=== PATIENT | female | born 1995 | race African-American/Black ===

== ENCOUNTER 2022-05-16 12:58 | Outpatient (CLI) | payer OTHER, SELFPAY ==
[2022-05-16 14:28] LABS: Hematocrit 32.8 % (37.0-47.0); Hemoglobin 11.2 g/dL (12.0-15.0); Mean Corpuscular HGB Conc 34.1 g/dl (32-36); Mean Corpuscular Hemoglobin 30.4 pg (26-34); Mean Corpuscular Volume 89.1 fl (80-100); Platelet Count Result 165 k/mm3 (150-375); Red Blood Count 3.68 M/mm3 (4.2-5.4); Red Cell Distribution Width 14.2 % (11.5-14.5); White Blood Count 5.4 K/mm3 (4.5-10.0)
[2022-05-17 07:23] LABS: Rapid Plasma Reagin Non-Reactive (NonReactive)
== END 2022-05-16 12:59 | disposition home or self-care (01) ==
PROVIDERS: Visit Provider Obstetrics & Gynecology
DX: Z34.93 Encounter for supervision of normal pregnancy, unspecified, third trimester (principal); Z3A.00 Weeks of gestation of pregnancy not specified
CPT/HCPCS: 36415; 85027; 86592; 86850; 86900; 86901

== ENCOUNTER 2022-05-17 05:48 | Inpatient (IN) | payer OTHER, SELFPAY ==
[2022-05-17] VITALS (44 sets, daily range): BP systolic 99–183; BP diastolic 53–144; PULSE 57–95; RESP 12–18; TEMP 36.1–36.8; O2SAT 96–100; BMI 44.9
--- NOTE | 2022-05-17 06:08 | LDADM ---
This patient, Janet Lehman, was admitted to Labor/Delivery/Recovery 120 on 05/17/22 at 05:48. Plans for labor, pain management and were discussed with patient. Patient/family oriented to hospital policies and general routines including ID bracelet, bed and alarms, visiting hours, pain management, procedures, bathroom and other care routines, personal items, smoking policy, room service/diet and guest tray routines, infant security routines, and visiting hours. Patient/Family are encouraged to report perceived risks to care and to ask questions if they do not understand what they are told or what they should do. See OBIX for further documentation.
[2022-05-17] MEDS: LACTATED RINGERS 1,000 ML 125 ML IV CONT (06:36)
[2022-05-17] MEDS: LACTATED RINGERS 1,000 ML 999 ML IV CONT (06:36)
--- NOTE | 2022-05-17 06:57 | PM.IMHP ---
H&P: HPI History of Present Illness Date/Time: 05/17/22 06:57 Chief Complaint: scheduled repeat Narrative: Janet is a 27yo @ 39.3wks (OBINNA 05/21/22) who presents for scheduled repeat section. She reports good movement. No VB or LOF. Her is complicated by: - Previous c/s x1.... for repeat - Obesity - Mild anemia; on iron daily Review of Systems Review of Systems: All systems reviewed & are unremarkable except as noted in HPI and below PMFSH Past Medical History Medical History Anxiety Depression Encounter for screening examination for sexually transmitted disease HSV-1 (herpes simplex virus 1) infection Suppression of menstruation Trichomonal vaginitis Surgical History Surgical History History of 09/30/19 arrest of dilation History of hernia repair History of tonsillectomy Hx laparoscopic cholecystectomy 01/24/21 Family History Family History Other Adopted Social History Social History Smoking status: Never smoker Alcohol intake: never Substance use: never Substance use type: does not use 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 Gender identity (if verbalized by the patient): Female Sexual Orientation (if Verbalized by the Patient): Straight or Heterosexual Spiritual care concerns: No Meds Home Medications and Allergies Home Medications Medication Instructions Recorded Confirmed Type ferrous sulfate 325 mg (65 mg 325 mg PO DAILY #90 tabs 03/26/22 05/17/22 Rx iron) tablet,delayed release vitamins-iron fumarate 65 1 tablet PO DAILY #90 tabs 04/10/22 05/17/22 Rx mg iron-folic acid 1 mg tablet Allergies Allergy/AdvReac Type Severity Reaction Status Date / Time Penicillins Allergy Severe Swelling Verified 02/19/22 14:24 of the Eye levofloxacin [From Levaquin] Allergy Swelling Verified 02/19/22 14:24 Vital Signs Vital Signs - 24 hr 05/17/22 06:08 05/17/22 06:08 05/17/22 06:38 Temperature 98 F Pulse Rate 77 Blood Pressure 133/77 Oxygen Delivery Room Air Exam Const: General: cooperative, comfortable and no acute distress Nutritional Appearance: obese Resp: Effort & Inspection: normal respiratory effort Cardio: Rate: regular rate GI: GI Palp: No abdominal tenderness and Yes Soft to palpation : Other: FHT's: 120's/mod elyssa/ + accels/ no decels - cat 1 Skin: General skin exam: normal color Neuro: General: patient oriented x3 Extrem: General: normal to inspection Psych: Appearance: grossly normal Affect: normal affect Attitude: cooperative Assessment and Plan Assessment and plan (1) Previous section complicating : Code(s): O34.219 - Maternal care for unspecified type scar from previous delivery Status: Acute Plan - for repeat section - all risks and benefits explained in detail
[2022-05-17] MEDS: GENTAMICIN SULFATE INJ 385 MG in DEXTROSE 5% 100 ML 109.63 MG IVPB (07:00)
--- NOTE | 2022-05-17 07:10 | WPDHPUPDATE1 ---
History and Physical Update Update Date/Time: 05/17/22 07:10 History and Physical has been reviewed, including an updated exam of the patient. There are NO changes in the patient's condition. Risks, benefits, and alternatives have been discussed and questions answered. Patient agrees to proceed with procedure.
--- NOTE | 2022-05-17 07:12 | WPDANESEPPF ---
Anes - Initial Pre Proc Eval Procedure: Operation Date: 05/17/22 07:30 Proposed Procedures p Repeat Section - Piper Miles MD Date/Time: 05/17/22 07:12 Surgeon: Piper Miles MD Pre Op Diagnosis: Repeat Patient Data Age: 27 Gender: F Height: 1.6 m Weight: 115 kg Last Vital Signs Temp 36.6 C 05/17/22 06:38 Pulse 77 05/17/22 06:08 BP 133/77 05/17/22 06:08 O2 Del Method Room Air 05/17/22 06:08 Allergies Allergy/AdvReac Type Severity Reaction Status Date / Time Penicillins Allergy Severe Swelling Verified 02/19/22 14:24 of the Eye levofloxacin [From Levaquin] Allergy Swelling Verified 02/19/22 14:24 Home Medications Medication Instructions Recorded Confirmed Type ferrous sulfate 325 mg (65 mg 325 mg PO DAILY #90 tabs 03/26/22 05/17/22 Rx iron) tablet,delayed release vitamins-iron fumarate 65 1 tablet PO DAILY #90 tabs 04/10/22 05/17/22 Rx mg iron-folic acid 1 mg tablet Laboratory Tests 05/17/22 06:35 Hep Bs Antigen Pending Patient hx anesthesia problems: none Family hx anesthesia problems: none Results Review: All pre-operative results and documents have been reviewed as part of the pre-operative evaluation. 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 Gender identity (if verbalized by the patient): Female Sexual Orientation (if Verbalized by the Patient): Straight or Heterosexual Spiritual care concerns: No Anes - Eval Final PreProcedure Day of Procedure 05/17/22 07:12 Patient weight: morbidly obese Heart: regular rate and rhythm Lungs: clear to auscultation and normal air movement Airway: Mallampati scale class II Neurological: alert and oriented Last oral intake: >/= 8 hours ASA classification: III Emergent: no Anesthetic plan: proceed Anesthesia type and monitoring: regional spinal Results Review: All pre-operative results and documents have been reviewed as part of the pre-operative evaluation. Informed Consent: The patient's anesthetic plan and its attendant risks and benefits were discussed with the patient/family/POA. Questions were solicited and answers provided to the satisfaction of the patient/family/POA.
[2022-05-17 07:31] LABS: Hepatitis B Surface Antigen Negative (Negative)
[2022-05-17] MEDS: CLINDAMYCIN 900 MG/D5W 50 ML 900 MG/50 ML PIGGYBACK 50 MG IVPB (07:35)
--- NOTE | 2022-05-17 09:08 | P.PCNOB_ITS ---
OB - Delivery Note Procedure Delivery date: 05/17/22 Procedure: Procedures Operation Date: 05/17/22 07:30 <No data on this case meets the specified criteria> Events: Previous Delivery Route of delivery: Quantitative Blood Loss (ml): 340 Anesthesia type: Spinal Disposition: Floor Baby Date of : 05/17/22 Time of : 08:21 Weeks of gestation at delivery: 39 (.3) Infant gender: Male Weight (pounds): 6 Weight (ounces): 14 presentation: vertex position: Right Occiput Transverse Placenta delivery description: Expressed Cord Vessel Description: 3 Vessels and Clamped/Cut score one minute: 9 score five minutes: 9 Narrative: She was counseled on all risks and benefits in detail. She was taken to the operating room where spinal was placed. She was then prepped and draped in the normal sterile fashion. She received Gentamicin and Clindamycin due to her allergies and a time out was performed. A Pfannenstiel incision was made in the skin and carried down to the underlying fascia. The fascia was nicked on either side of the midline and the fascial incision was extended laterally and super iorly. The fascia was then elevated and the underlying rectus muscles were dissected off the fascia, superiorly and inferiorly. The rectus muscles were then in the midline and the peritoneum was entered bluntly. A thick adhesion containing omentum was noted to the mid-uterus. Those adhesions were slowly taken down using bovie cautery. Once adequate exposure was obtained, a bladder blade and retractors were placed within the abdomen. The bladder was noted to be well out of the surgical field. A low transverse incision was made on the lower uterine segment and clear, but scant fluid was noted. The occiput was brought to the hysterotomy and the head was easily delivered. The shoulder and body then followed without complications. The infant had spontaneous cry and the mouth and nose were bulb suctioned. The cord was clamped and cut and the was handed off to the awaiting pediatric nurse. A segment of the cord was collected for cord gases. The remaining cord blood was collected for typing. With pitocin infusing, the placenta delivered with gentle traction on the cord without complications. The uterus was then cleared out of all clots and debris using a clean, moist lap. The hysterotomy was then repaired in a running, interlocking fashion using 0 Vicryl. A second layer imbricating suture was then made using 0 Vicryl. The hysterotomy was found to be hemostatic and good uterine tone was noted. The site of prior adhesions were made hemostatic with bovie cautery. The bilateral adnexa were examined and found to be normal. The pelvis was cleared of all clots and fluid. Seprafilm was placed on the anterior uterus to try and prevent future adhesions. The retractors were removed from the abdomen. The peritoneum, muscle, and fascia were examined and made hemostatic with bovie cautery. The fascia was then repaired using two separate 0 Vicryl sutures in a running fashion. The subcutaneous tissue was then irrigated and made hemostatic with bovie cautery. The subcutaneous tissue was then reapproximated using 2-0 Vicryl. The skin was then closed using 4-0 Monocryl in a running subcuticular fashion. Sponge, lap, needle and instrument counts were correct at the end of the procedure x2. The patient tolerated the procedure well and was taken to recovery in a stable condition. [facility] Delivery Billing Delivery Delivery: Delivery Charge
[2022-05-17] MEDS: OXYTOCIN 30 UNITS/NS 500 ML 30 UNITS/500 ML BAG 125 UNITS IV CONT (10:12)
--- NOTE | 2022-05-17 11:16 | OBPPTRN ---
Patient transferred to post room #285 via stretcher. Support person present. Oriented to unit, room, information board, rooming in, admission packet and security measures. Patient verbalizes understanding.
[2022-05-17] MEDS: KETOROLAC 30 MG/ML VIAL (*BKC) IV PUSH (12:23)
[2022-05-17 12:28] LABS: HIV 1/2 Ab P24 Ag Result Negative (Negative)
[2022-05-17 12:34] LABS: Rubella IgG Antibody 72.9 IU/ML
[2022-05-17] MEDS: DEXTROSE 5%/0.45% SOD CHL 1,000 ML 125 ML IV CONT (14:53)
[2022-05-17] MEDS: DOCUSATE SODIUM 100 MG CAPSULE PO (17:22)
[2022-05-17] MEDS: HYDROcodone/acetaminophen (*CRX) 5-325 MG TABLET 1 TAB PO ×2 (17:53→21:13)
[2022-05-17] MEDS: diphenhydrAMINE HCl INJ 50 MG/ML VIAL 25 MG IV PUSH (21:14)
[2022-05-18 00:10] VITALS: BP 109/65; PULSE 92; RESP 18; TEMP 36.9
[2022-05-18] MEDS: SIMETHICONE 80 MG TAB.CHEW PO ×4 (00:13→20:20)
[2022-05-18] MEDS: HYDROcodone/acetaminophen (*CRX) 5-325 MG TABLET 1 TAB PO ×5 (03:59→20:20)
[2022-05-18] MEDS: IBUPROFEN 600 MG TABLET PO ×4 (03:59→22:09)
[2022-05-18 04:00] VITALS: BP 110/62; PULSE 72; RESP 18; TEMP 36.6
[2022-05-18 05:48] LABS: Basophils Percent Auto 0.3 % (0.2-1.2); Eosinophils Absolute Auto 0.1 K/mm3 (0-0.3); Eosinophils Percent Auto 0.9 % (0-4.4); Hematocrit 30.9 % (37.0-47.0); Hemoglobin 10.6 g/dL (12.0-15.0); Immature Granulocyte Absolute 0.02 K/mm3 (0.00-0.031); Immature Granulocyte Percent A 0.3 % (0-0.5); Lymphocytes Absolute Auto 0.84 K/mm3 (0.9-3.2); Lymphocytes Percent Auto 12.3 % (18.3-44.2); Mean Corpuscular HGB Conc 34.3 g/dl (32-36); Mean Corpuscular Hemoglobin 30.2 pg (26-34); Mean Platelet Volume 12.7 fl (7.4-10.4); Monocytes Absolute Auto 0.6 K/mm3 (0.1-0.6); Monocytes Percent Auto 8.4 % (2.6-8.5); Neutrophils Absolute Auto 5.3 K/mm3 (1.3-6.7); Neutrophils Percent Auto 77.8 % (45.5-73.1); Platelet Count Result 147 k/mm3 (150-375); Red Blood Count 3.51 M/mm3 (4.2-5.4); Red Cell Distribution Width 14.4 % (11.5-14.5); White Blood Count 6.8 K/mm3 (4.5-10.0)
[2022-05-18] MEDS: DOCUSATE SODIUM 100 MG CAPSULE PO ×2 (07:46→20:20)
[2022-05-18] MEDS: MULTIVIT/MIN/PREN/FOL AC/IRON TABLET 1 TAB PO (07:47)
[2022-05-18 08:00] VITALS: BP 103/65; PULSE 79; RESP 18; TEMP 36.7; O2SAT 98
--- NOTE | 2022-05-18 08:45 | P.PNOB_ITS ---
OB - PN: Subj Subjective Date/time seen: 05/18/22 08:45 Narrative: POD#1 Janet reports doing well today. Her bleeding is normal. Her pain is controlled with meds. She is tolerating regular diet, voiding, and ambulating without issues. She has not passed gas yet. She denies any issues with her incision. She is breast feeding. She would like her son circumcised. Plan for discharge home on 05/20/22. OB - PN: Obj Data Labs CBC & Chem 7: 05/18/22 03:57 Labs: Laboratory Results - last 24 hr 05/17/22 05/17/22 05/18/22 06:35 06:35 03:57 WBC 6.8 RBC 3.51 L Hgb 10.6 L Hct 30.9 L MCV 88.0 MCH 30.2 MCHC 34.3 RDW 14.4 Plt Count 147 L MPV 12.7 H Immature Gran % (Auto) 0.3 Neut % (Auto) 77.8 H Lymph % (Auto) 12.3 L [place] % (Auto) 8.4 Eos % (Auto) 0.9 Baso % (Auto) 0.3 Lymph # (Auto) 0.84 L [place] # (Auto) 0.6 Eos # (Auto) 0.1 Baso # (Auto) 0.0 Abs Immat Gran (auto) 0.02 Absolute Neuts (auto) 5.3 Absolute Nucleated RBC 0.0 Nucleated RBC % 0.0 HIV 1&2 Ab/P24 Ag 4thGn Negative Rubella IgG Antibody 72.9 OB - PN A/P Plan day: 1 Plan: routine care Time Spent With Patient Time: Total time spent is greater than 50% in coordination of care (as documented) at patient's floor/unit and/or counseling patient: Review of Systems Constitutional: Constitutional: Denies chills, Denies fever(s) and Denies headache(s) Eyes: Eyes: Denies change in vision ENT: Denies dizziness and Denies headache(s) Cardiovascular: Cardiovascular: Denies chest pain, Denies palpitations and Denies dyspnea Respiratory: Respiratory: Denies cough and Denies dyspnea Gastrointestinal: Gastrointestinal: Denies nausea and Denies vomiting Genitourinary: Comments: normal bleeding Neurologic: Denies dizziness and Denies headache(s) Endocrine: Endocrine: Denies palpitations Exam Const: General: cooperative, comfortable and no acute distress Orientation/consciousness: patient oriented x3 Resp: Effort & Inspection: normal respiratory effort Auscultation: clear to auscultation bilaterally Cardio: Rate: regular rate GI: Inspection: non-distended and incision (covered with clean dressing) GI Palp: Yes abdominal tenderness (appropriate) and Yes Soft to palpation Auscultation: normal bowel sounds : Other: fundus firm Skin: General skin exam: normal color Neuro: General: patient oriented x3 Extrem: General: normal to inspection Psych: Appearance: grossly normal Affect: normal affect Attitude: cooperative
--- NOTE | 2022-05-18 10:20 | WPDANLDPN2 ---
Anes-Prog Note L&D Date/Time: 05/18/22 10:20 Neuro status: Neuro function grossly intact. Vital Signs: Last Vital Signs Temp 36.6 C 05/18/22 04:00 Pulse 72 05/18/22 04:00 Resp 18 05/18/22 04:00 BP 110/62 05/18/22 04:00 Pulse Ox 97 05/17/22 15:20 O2 Del Method Room Air 05/18/22 04:00 Pain score (VAS): 0 I/O: Intake & Output 05/17/22 05/18/22 05/18/22 23:59 07:59 15:59 Intake Total 1400 650 Output Total 250 750 Balance 1150 -100 Patient feedback: Patient satisfied with anesthetic care.
--- NOTE | 2022-05-18 10:20 | WPDANLDNPN2 ---
Anes-Prog Note L&D-Neuraxial Date/Time: 05/18/22 10:20 Patient feedback: Patient satisfied with post-operative pain management.
[2022-05-18 18:45] VITALS: BP 130/78; PULSE 81; RESP 18; TEMP 36.8; O2SAT 97
[2022-05-19] MEDS: HYDROcodone/acetaminophen (*CRX) 5-325 MG TABLET 1 TAB PO ×4 (02:39→23:51)
[2022-05-19] MEDS: SIMETHICONE 80 MG TAB.CHEW PO ×4 (02:40→18:42)
[2022-05-19 08:15] VITALS: BP 117/75; PULSE 95; RESP 18; TEMP 36.8; O2SAT 100
[2022-05-19] MEDS: DOCUSATE SODIUM 100 MG CAPSULE PO ×2 (08:17→14:56)
[2022-05-19] MEDS: MULTIVIT/MIN/PREN/FOL AC/IRON TABLET 1 TAB PO (08:17)
[2022-05-19] MEDS: IBUPROFEN 600 MG TABLET PO ×3 (08:18→23:50)
--- NOTE | 2022-05-19 09:11 | PM.OBPNVD ---
OB - PN: Subj Subjective Date/time seen: 05/19/22 09:11 Narrative: POD#2 Janet reports doing well today. Her bleeding is light. Her pain is controlled. She is tolerating regular diet, voiding, passing gas, and ambulating without issues. She denies any issues with her incision. She is breast feeding. OB - PN: Obj Data Labs CBC & Chem 7: 05/18/22 03:57 OB - PN A/P Plan day: 2 Plan: routine care and discharge home (tomorrow) Comments: - Pelvic rest; take meds as prescribed - Incision care/no heavy lifting - ER return precautions: fever, n/v/abd pain, bleeding, HTN Time Spent With Patient Time: Total time spent is greater than 50% in coordination of care (as documented) at patient's floor/unit and/or counseling patient: Review of Systems Constitutional: Constitutional: Denies chills, Denies fever(s) and Denies headache(s) Eyes: Eyes: Denies change in vision ENT: Denies dizziness and Denies headache(s) Cardiovascular: Cardiovascular: Denies chest pain, Denies palpitations and Denies dyspnea Respiratory: Respiratory: Denies cough and Denies dyspnea Gastrointestinal: Gastrointestinal: Denies nausea and Denies vomiting Genitourinary: Comments: normal bleeding Neurologic: Denies dizziness and Denies headache(s) Endocrine: Endocrine: Denies palpitations Exam Const: General: cooperative, comfortable and no acute distress Orientation/consciousness: patient oriented x3 Resp: Effort & Inspection: normal respiratory effort Auscultation: clear to auscultation bilaterally Cardio: Rate: regular rate GI: Inspection: non-distended and incision (covered with clean dressing) GI Palp: Yes abdominal tenderness (appropriate) and Yes Soft to palpation Auscultation: normal bowel sounds : Other: fundus firm Skin: General skin exam: normal color Neuro: General: patient oriented x3 Extrem: General: normal to inspection Psych: Appearance: grossly normal Affect: normal affect Attitude: cooperative
--- NOTE | 2022-05-19 11:36 | PC.NURSE ---
This morning I instructed patient to walk the halls, she was complaining of gas pain and incisional pain. She has only been out of bed to use the bathroom and then she is back to bed. Instructed the patient to walk the halls after breakfast and then again after lunch. I just went in the room and told the patient that I have not seen her walk the halls yet today and that she needed to get up and walk. She stated, I am just so tired and I'm hurting so I just want to sleep I explained that the pain will get better the more she gets up and moves, told her she needs to get up this afternoon and walk the infante at least once, twice would be great before dinner.
[2022-05-19 18:30] VITALS: BP 117/80; PULSE 92; RESP 18; TEMP 36.4; O2SAT 99
[2022-05-19] MEDS: HYDROcodone/acetaminophen (*CRX) 10-325 MG TABLET 1 TAB PO (18:42)
[2022-05-20] MEDS: HYDROcodone/acetaminophen (*CRX) 10-325 MG TABLET 1 TAB PO ×2 (06:01→10:04)
[2022-05-20 08:30] VITALS: BP 123/73; PULSE 96; RESP 96; TEMP 36.9; O2SAT 18
[2022-05-20] MEDS: MULTIVIT/MIN/PREN/FOL AC/IRON TABLET 1 TAB PO (10:04)
[2022-05-20] MEDS: IBUPROFEN 600 MG TABLET PO (10:06)
[2022-05-20] MEDS: DOCUSATE SODIUM 100 MG CAPSULE PO (10:08)
--- NOTE | 2022-05-20 15:38 | PC.NURSE ---
1006 Patient was given the opportunity to view the discharge video Mother & Baby Care, The First Two Weeks and to ask questions. Patient declined viewing the video and has been given the mother/baby guide for home reference.
--- NOTE | 2022-05-22 10:29 | PM.OBDSVD ---
DS: Admitting Diagnosis Discharge Date 05/20/22 Admitting Diagnosis previous section DS: Discharge Diagnosis Discharge Diagnosis (1) S/P section: Code(s): Z98.891 - History of uterine scar from previous surgery Status: Acute OB - DS: Summary OB Procedures : Ultrasound OB Procedures Intrapartum: OB Procedures: : None Peripartum Data Delivery Method: Section Procedures: Procedures Operation Date: 05/17/22 07:30 Actual Procedure Side Surgeon p Repeat Section Bilateral Piper Miles MD complications: none 1: Gender: Male Disposition of : home Status at Discharge Functional status at discharge: independent ambulation Overall status at discharge: patient is back to baseline Time Spent with Patient Time attestation: Total time spent providing and/or coordinating discharge services: Time spent: Less than 30 minutes Exam Const: General: cooperative, comfortable and no acute distress Nutritional Appearance: obese Orientation/consciousness: patient oriented x3 Resp: Effort & Inspection: normal respiratory effort Auscultation: clear to auscultation bilaterally Cardio: Rate: regular rate GI: Inspection: non-distended and incision (covered with clean dressing) GI Palp: No abdominal tenderness and Yes Soft to palpation Auscultation: normal bowel sounds : Other: fundus firm Skin: General skin exam: normal color Neuro: General: patient oriented x3 Extrem: General: normal to inspection Psych: Appearance: grossly normal Affect: normal affect Attitude: cooperative Discharge Plan Discharge Attending physician on discharge: Piper Miles Discharging Clinician: Piper Miles Patient Disposition: Home, Self-Care Activity: may shower, may drive after 2 weeks and pelvic rest Diet: regular Discharge Instructions: Education: Mom and Baby Guide Given to: Mother Follow-Up: Call your delivering provider's office for an appointment to be seen in: 4 Week Mom and baby should come to the [facility] for the follow-up appointment. Appointment Date/Time: Saturday, May 21, 2022 at 10:00 am What to expect at your follow-up visit: Physical Assessment Removal of Dressing Call [phone] if you are unable to keep your appointment time. BREAST CARE: * Wear a snug supportive bra. * For engorgement discomfort: Breast Feeding: * Apply warm moist washcloths * Express milk as needed to relieve engorgement * Wear loose clothing Bottle Feeding: * May apply ice packs * For sore nipples: * Identify correct latch-on * Apply warm moist washcloths before and after nursing * Air dry nipples after nursing * May apply Lansinoh cream to nipples ABDOMINAL INCISION: (if applicable) * Allow incision to air dry * Do NOT use lotions for powders on your incision * When showering, allow soap and water to run over the incision, but do not wash incision EPISIOTOMY/PERINEAL CARE: * Until bleeding stops, use your viviane bottle after urinating * Change your pad frequently throughout the day * Do NOT bathe in the water * No tub baths until seen by your physician - You may shower ACTIVITY: * Rest as much as possible. * Do not exercise or lift anything heavier than your baby (such as laundry or other children.) * Avoid stairs or driving as much as possible. * Do not put anything into the vagina. No douching, tampons, or sexual activity until seen by physician. NOTIFY PHYSICIAN IF YOU HAVE ANY QUESTIONS OR IF ANY OF THE FOLLOWING SYMPTOMS OCCUR: * If your episiotomy or incision becomes red, swollen, or more painful than what you have experienced in the hospital. * If your vaginal bleeding becomes foul smelling. * If your vaginal bleeding becomes more heavy than a
== END 2022-05-20 13:13 | disposition home or self-care (01) | DRG 540 ==
LOC: ANHLDR 05:51 → ANHOB2 11:24
PROVIDERS: Admitting Provider Obstetrics & Gynecology; Visit Provider Obstetrics & Gynecology
PROC: 10D00Z1 Extraction of Products of Conception, Low, Open Approach (ICD-10-PCS; CPT 59514; principal; 2022-05-17 07:30)
DX: O34.219 Maternal care for unspecified type scar from previous cesarean delivery (principal); D64.9 Anemia, unspecified; O99.02 Anemia complicating childbirth; Z3A.39 39 weeks gestation of pregnancy; Z37.0 Single live birth; Z90.49 Acquired absence of other specified parts of digestive tract; Z88.0 Allergy status to penicillin
CPT/HCPCS: 36415; 85025; 86703; 86762; 87340; A9270; C1765; G0432; J0131; J1200; J1580; J1885; J2274; J2405; J2590; J3010; J7120